=== PATIENT | female | born 1945 | race Caucasian/White ===

== ENCOUNTER 2019-09-19 07:02 | Day surgery (SDC) | payer MEDICARE, BC ==
[2019-09-15 12:52] LABS: BASOPHILS # (AUTO) 0.1 X10'3 (0-0.2); BASOPHILS % (AUTO) 1.1 % (0-1); EOSINOPHILS # (AUTO) 0.2 X10'3 (0-0.9); EOSINOPHILS % (AUTO) 2.2 % (0-6); HEMATOCRIT 41.8 % (35.0-45.0); LYMPHOCYTES # (AUTO) 1.6 X10'3 (1.1-4.8); LYMPHOCYTES % (AUTO) 19.5 % (21-51); MEAN CORPUSCULAR HEMOGLOBIN 29.6 PG (27.0-31.0); MEAN CORPUSCULAR HGB CONC 33.5 g/dL (33.0-36.5); MEAN CORPUSCULAR VOLUME 88.3 FL (78-98); MEAN PLATELET VOLUME 8.8 FL (7.4-10.4); MONOCYTES # (AUTO) 0.6 X10'3 (0-0.9); MONOCYTES % (AUTO) 6.9 % (2-12); NEUTROPHILS # (AUTO) 5.9 X10'3 (1.8-7.7); NEUTROPHILS % (AUTO) 70.3 % (42-75); PLATELET COUNT 297 X10'3 (140-440); RED BLOOD COUNT 4.73 X10'6 (4.20-5.60); RED CELL DISTRIBUTION WIDTH 15.1 % (11.5-14.5); WHITE BLOOD COUNT 8.4 X10'3 (4.5-11.0)
[2019-09-15 12:59] LABS: ANION GAP 8 (8-16); BLOOD UREA NITROGEN 22 MG/DL (7-18); BUN/CREATININE RATIO 26.5 (6.6-38.0); CALCIUM 9.9 MG/DL (8.5-10.1); CHLORIDE 105 MMOL/L (99-107); CREATININE 0.83 MG/DL (0.40-0.90); GLUCOSE 102 MG/DL (70-104); POTASSIUM 3.8 MMOL/L (3.5-5.1); SODIUM 143 MMOL/L (135-145); TOTAL CARBON DIOXIDE 29.8 MMOL/L (24-32); eGFR 67 ML/MIN
[2019-09-15 13:02] LABS: PARTIAL THROMBOPLASTIN TIME 31 SECONDS (22-32)
[2019-09-19] VITALS (10 sets, daily range): BP systolic 128–147; BP diastolic 65–89
[~2019-09-19] VITALS: Ht 167.6 cm; Wt 95.4 kg
[2019-09-19] MEDS ORDERED: normal saline 1,000 ML IV SCH (07:25)
[2019-09-19] MEDS ORDERED: diphenhydrAMINE 25mg capsule PO PRN (07:25)
[2019-09-19] MEDS ORDERED: LORazepam 0.5 MG tablet PO PRN (07:25)
[2019-09-19] MEDS ORDERED: METF500T20 PO (07:55)
[2019-09-19] MEDS ORDERED: DOCU100C40 PO (07:55)
[2019-09-19] MEDS ORDERED: MELA5CAP PO (07:55)
[2019-09-19] MEDS ORDERED: KRIL500C PO (07:55)
[2019-09-19] MEDS ORDERED: MULT-1085 PO (07:55)
[2019-09-19] MEDS ORDERED: ASPI81TA52 PO (07:55)
[2019-09-19] MEDS ORDERED: CHOL200026 PO (07:55)
[2019-09-19] MEDS ORDERED: CLON-529 PO (07:55)
[2019-09-19] MEDS ORDERED: OMEP20TA5 PO (07:55)
[2019-09-19] MEDS ORDERED: LOSA100T57 PO (07:55)
[2019-09-19] MEDS ORDERED: SIMV-42 PO (07:55)
[2019-09-19] MEDS ORDERED: OXYB5TAB16 PO (07:55)
[2019-09-19] MEDS ORDERED: CHOL500050 PO (07:55)
[2019-09-19] MEDS ORDERED: HYDR25TA4 PO (07:55)
[2019-09-19] MEDS ORDERED: LIDOcaine 1% (10mg/ml)w/preservative injection 20ml MDV ONE (08:50)
[2019-09-19] MEDS ORDERED: iohexol 350MG/ML 100ml bottle IV ONE (08:50)
[2019-09-19] MEDS ORDERED: midazolam 2 mg/2 ml injection ONE (09:04)
[2019-09-19] MEDS ORDERED: fentaNYL/PF 50MCG/1 ML 2ML syringe ONE (09:04)
[2019-09-19] MEDS ORDERED: OXAZEpam 15mg capsule PO PRN (09:50)
[2019-09-19] MEDS ORDERED: ondansetron/PF 4mg/2ml inj IV PRN (09:50)
[2019-09-19] MEDS ORDERED: HYDROcodone/acetaminophen 5mg/325mg tablet PO PRN (09:50)
[2019-09-19] MEDS ORDERED: HYDROcodone/acetaminophen 10/325mg tab PO PRN (09:50)
[2019-09-19] MEDS ORDERED: proCHLORperazine 10 MG/2 ml inj IV PRN (09:50)
[2019-09-19] MEDS ORDERED: acetaminophen 325mg tablet PO PRN (09:50)
== END 2019-09-19 12:56 | disposition home or self-care (01) ==
LOC: SSTAY O 07:02
PROVIDERS: ATTEND Internal Medicine Interventional Cardiology
DX: R07.9 Chest pain, unspecified (principal); I25.10 Atherosclerotic heart disease of native coronary artery without angina pectoris; I10 Essential (primary) hypertension; E78.49 Other hyperlipidemia; K21.9 Gastro-esophageal reflux disease without esophagitis; G47.10 Hypersomnia, unspecified; Z98.890 Other specified postprocedural states; Z79.899 Other long term (current) drug therapy; Z88.2 Allergy status to sulfonamides; Z88.8 Allergy status to other drugs, medicaments and biological substances; E66.9 Obesity, unspecified; Z68.33 Body mass index [BMI] 33.0-33.9, adult
CPT/HCPCS: 36415; 80048; 85025; 85610; 85730; 93458; 99152; C1769; J1644; J2001; J2250; J3010; J7030; Q0163; Q9967; A4620; A6258

== ENCOUNTER → 2020-05-21 | Outpatient (CLI) | payer MEDICARE, BC ==
[~2020-05-21] MED LIST: ASPI81TA52 PO; CHOL200026 PO; CHOL500050 PO; CLON-529 PO; DOCU100C40 PO; HYDR25TA4 PO; KRIL500C PO; LOSA100T57 PO; MELA5CAP PO; METF-900 PO; MULT-1085 PO; OMEP20TA5 PO; OXYB5TAB16 PO; SIMV-42 PO
== END | disposition home or self-care (01) ==
LOC: RAD 08:38
PROVIDERS: ATTEND Family Medicine
DX: R56.9 Unspecified convulsions (principal)
CPT/HCPCS: 95819

== ENCOUNTER 2020-06-10 02:29 | Inpatient (IN) | payer MEDICARE, BC ==
[2020-06-10] VITALS (8 sets, daily range): BP systolic 115–168; BP diastolic 51–112
[~2020-06-10] VITALS: Ht 167.6 cm; Wt 100.0 kg
[2020-06-10] MEDS ORDERED: aspirin 81mg tab.chew PO ONE (02:35)
[2020-06-10] MEDS ORDERED: nitroGLYCERIN 0.4mg SUBLingual tab SL PRN ×3 (02:35→10:20)
--- NOTE | 2020-06-10 02:46 | NUR ---
dr. gonzales at bedside assessing patient
[2020-06-10] MEDS ORDERED: OMEP40CA13 PO (02:58)
[2020-06-10 03:00] LABS: BASOPHILS # (AUTO) 0.1 X10'3 (0-0.2); BASOPHILS % (AUTO) 0.9 % (0-1); EOSINOPHILS # (AUTO) 0.6 X10'3 (0-0.9); EOSINOPHILS % (AUTO) 6.6 % (0-6); HEMATOCRIT 42.6 % (35.0-45.0); HEMOGLOBIN 14.7 g/dl (12.0-16.0); LYMPHOCYTES # (AUTO) 2.2 X10'3 (1.1-4.8); LYMPHOCYTES % (AUTO) 23.5 % (21-51); MEAN CORPUSCULAR HEMOGLOBIN 30.7 PG (27.0-31.0); MEAN CORPUSCULAR HGB CONC 34.4 g/dL (33.0-36.5); MEAN CORPUSCULAR VOLUME 89.3 FL (78-98); MEAN PLATELET VOLUME 8.8 FL (7.4-10.4); MONOCYTES # (AUTO) 0.6 X10'3 (0-0.9); MONOCYTES % (AUTO) 6.7 % (2-12); NEUTROPHILS # (AUTO) 5.8 X10'3 (1.8-7.7); NEUTROPHILS % (AUTO) 62.3 % (42-75); PLATELET COUNT 304 X10'3 (140-440); RED BLOOD COUNT 4.77 X10'6 (4.20-5.60); RED CELL DISTRIBUTION WIDTH 14.3 % (11.5-14.5); WHITE BLOOD COUNT 9.3 X10'3 (4.5-11.0)
[2020-06-10 03:14] LABS: PARTIAL THROMBOPLASTIN TIME 30 SECONDS (22-32)
[2020-06-10 03:18] LABS: ALANINE AMINOTRANSFERASE 39 U/L (12-78); ALBUMIN 4.2 G/DL (3.4-5.0); ALKALINE PHOSPHATASE 106 IU/L (46-116); ANION GAP 9 (8-16); ASPARTATE AMINO TRANSFERASE 19 U/L (10-37); BILIRUBIN,TOTAL 0.3 MG/DL (0.1-1.0); BLOOD UREA NITROGEN 22 MG/DL (7-18); BUN/CREATININE RATIO 20.8 (6.6-38.0); CALCIUM 10.5 MG/DL (8.5-10.1); CHLORIDE 100 MMOL/L (99-107); CREATININE 1.06 MG/DL (0.40-0.90); GLUCOSE 187 MG/DL (70-104); POTASSIUM 3.9 MMOL/L (3.5-5.1); SODIUM 137 MMOL/L (135-145); TOTAL PROTEIN 8.4 G/DL (6.4-8.2); eGFR 51 ML/MIN
[2020-06-10] MEDS ORDERED: magnesium Cl slow-release 64mg tablet PO PRN (03:55)
[2020-06-10] MEDS ORDERED: magnesium hydroxide 30ml (MOM) UD suspension PO PRN (03:55)
[2020-06-10] MEDS ORDERED: magnesium 4gm in 100ml NS 100 ML IV PRN (03:55)
[2020-06-10] MEDS ORDERED: acetaminophen 325mg tablet PO PRN ×2 (03:55)
[2020-06-10] MEDS ORDERED: mag hydrox/Alum hydrox/simeth 30ml oral suspension PO PRN (03:55)
[2020-06-10] MEDS ORDERED: ondansetron/PF 4mg/2ml inj IV PRN (03:55)
[2020-06-10] MEDS ORDERED: potassium Cl 20 mEq SR tablet PO PRN ×2 (03:55)
[2020-06-10] MEDS ORDERED: HYDROcodone/acetaminophen 5mg/325mg tablet PO PRN (03:55)
[2020-06-10] MEDS ORDERED: potassium CL 10mEq/100ml bag 100 ML IV PRN ×2 (03:55)
[2020-06-10] MEDS ORDERED: morphine 2 MG/ML inj. syringe IV PRN ×2 (03:55)
[2020-06-10] MEDS ORDERED: normal saline 1000ml 1,000 ML IV SCH (03:55)
[2020-06-10] MEDS ORDERED: metoclopramide 5 mg/ml inj IV PRN (03:55)
[2020-06-10] MEDS ORDERED: bisacodyl 10mg suppository rectal RC PRN (03:55)
[2020-06-10] MEDS ORDERED: magnesium 2GM in 50ml NS 50 ML IV PRN (03:55)
[2020-06-10] MEDS ORDERED: HYDROcodone/acetaminophen 10/325mg tab PO PRN (03:55)
[2020-06-10 04:50] LABS: HEMOGLOBIN A1C 6.9 % (4.5-6.2)
[2020-06-10] MEDS: furosemide 40mg/4ml inj IV SCH ×3 (05:49→20:09)
[2020-06-10] MEDS: pantoprazole 40mg Tablet.DR PO SCH (07:30)
[2020-06-10] MEDS: docusate sod 100mg capsule PO SCH (08:00)
[2020-06-10] MEDS ORDERED: HYDROchlorothiazide 25mg tablet PO SCH (08:00)
[2020-06-10] MEDS: aspirin 81mg tablet.DR PO SCH (08:00)
[2020-06-10] MEDS: enoxaparin 40mg/0.4ml syringe SUBCUT SCH (08:00)
[2020-06-10] MEDS: cloNIDine 0.1 mg tablet PO SCH ×2 (08:00→20:09)
[2020-06-10] MEDS: K and/or MAG REPLACEMENT MC SCH ×2 (08:00→20:00)
[2020-06-10] MEDS: oxybutynin 5mg tablet PO SCH ×2 (08:00→20:09)
[2020-06-10] MEDS ORDERED: metoprolol tartrate 1mg/ml inj IV PRN (10:20)
[2020-06-10] MEDS ORDERED: aminophylline 250mg/10ml inj. IV PRN (10:20)
[2020-06-10] MEDS ORDERED: regadenoson 0.4mg/5ml syringe IV ONE (10:20)
[2020-06-10] MEDS: losartan 50mg tablet PO SCH (11:29)
--- NOTE | 2020-06-10 18:30 | NUR ---
Patient in room MED 311. I have received report from Delia SMALL and had the opportunity to ask questions and assume patient care.
[2020-06-10] MEDS ORDERED: enoxaparin 40mg/0.4ml syringe SQ SCH (20:00)
[2020-06-10] MEDS ORDERED: temazepam 15mg capsule PO PRN (21:00)
[2020-06-10] MEDS ORDERED: Melatonin 3mg tablet PO SCH (21:00)
[2020-06-11 02:00] VITALS: BP 161/73
[2020-06-11 06:00] VITALS: BP 144/56
--- NOTE | 2020-06-11 06:15 | NUR ---
Patient in room MED 311. I have received report from GEOVANNY sheldon and had the opportunity to ask questions and assume patient care.
[2020-06-11 06:26] LABS: HEMATOCRIT 41.1 % (35.0-45.0); HEMOGLOBIN 14.1 g/dl (12.0-16.0); MEAN CORPUSCULAR HEMOGLOBIN 30.8 PG (27.0-31.0); MEAN CORPUSCULAR HGB CONC 34.3 g/dL (33.0-36.5); MEAN CORPUSCULAR VOLUME 89.9 FL (78-98); MEAN PLATELET VOLUME 8.6 FL (7.4-10.4); PLATELET COUNT 254 X10'3 (140-440); RED BLOOD COUNT 4.57 X10'6 (4.20-5.60); RED CELL DISTRIBUTION WIDTH 14.3 % (11.5-14.5); WHITE BLOOD COUNT 10.5 X10'3 (4.5-11.0)
--- NOTE | 2020-06-11 06:38 | NUR ---
Problems reprioritized. Patient report given, questions answered & plan of care reviewed with Chastity SMALL.
[2020-06-11 06:40] LABS: ALBUMIN 3.4 G/DL (3.4-5.0); ANION GAP 10 (8-16); BLOOD UREA NITROGEN 19 MG/DL (7-18); BUN/CREATININE RATIO 20.9 (6.6-38.0); CALCIUM 9.6 MG/DL (8.5-10.1); CHLORIDE 101 MMOL/L (99-107); CHOLESTEROL 161 MG/DL (0-200); CREATININE 0.91 MG/DL (0.40-0.90); GLUCOSE 185 MG/DL (70-104); HDL CHOLESTEROL 40 MG/DL (35-60); LDL CHOLESTEROL 91 MG/DL (50-100); POTASSIUM 3.5 MMOL/L (3.5-5.1); SODIUM 139 MMOL/L (135-145); TOTAL CARBON DIOXIDE 28.1 MMOL/L (24-32); TRIGLYCERIDES 129 MG/DL (20-135); eGFR 60 ML/MIN
[2020-06-11] MEDS: furosemide 40mg/4ml inj IV SCH (08:00)
[2020-06-11] MEDS: K and/or MAG REPLACEMENT MC SCH (08:00)
[2020-06-11] MEDS: enoxaparin 40mg/0.4ml syringe SUBCUT SCH (08:00)
[2020-06-11 10:00] VITALS: BP 167/87
[2020-06-11] MEDS: cloNIDine 0.1 mg tablet PO SCH (10:46)
[2020-06-11] MEDS: losartan 50mg tablet PO SCH (10:46)
[2020-06-11] MEDS: docusate sod 100mg capsule PO SCH (10:47)
[2020-06-11] MEDS: aspirin 81mg tablet.DR PO SCH (10:47)
[2020-06-11] MEDS: pantoprazole 40mg Tablet.DR PO SCH (10:48)
[2020-06-11] MEDS: oxybutynin 5mg tablet PO SCH (10:48)
[2020-06-11] MEDS ORDERED: NITR0.4T51 SL (13:31)
[2020-06-11 14:00] VITALS: BP 149/90
--- NOTE | 2020-06-11 16:00 | NUR ---
Patient stable for discharge per MD orders. All discharge instructions and education reviewed with patient and all questions answered. New prescription e transmitted to preferred pharmacy. PIV discontinued dressing clean, dry and intact, tip intact. tele monitor removed. all known belongings collected and sent with patient. Patient wheeled to pmv driven by family.
== END 2020-06-11 16:00 | disposition home or self-care (01) | DRG 305 ==
LOC: ER 02:29 → ED HOLD 03:54 → MED 3N 17:35
PROVIDERS: ADMIT Family Medicine; ATTEND Family Medicine
PROC: 4A02XM4 Measurement of Cardiac Total Activity, External Approach (ICD-10-PCS; principal; 2020-06-10)
PROC: 3E073KZ Introduction of Other Diagnostic Substance into Coronary Artery, Percutaneous Approach (ICD-10-PCS; 2020-06-10)
DX: I16.0 Hypertensive urgency (principal); I25.10 Atherosclerotic heart disease of native coronary artery without angina pectoris; N18.9 Chronic kidney disease, unspecified; E11.22 Type 2 diabetes mellitus with diabetic chronic kidney disease; E78.5 Hyperlipidemia, unspecified; I12.9 Hypertensive chronic kidney disease with stage 1 through stage 4 chronic kidney disease, or unspecified chronic kidney disease; K21.9 Gastro-esophageal reflux disease without esophagitis; R09.89 Other specified symptoms and signs involving the circulatory and respiratory systems; Z88.1 Allergy status to other antibiotic agents; Z95.5 Presence of coronary angioplasty implant and graft; Z90.710 Acquired absence of both cervix and uterus
CPT/HCPCS: 36415; 71045; 78452; 80048; 80053; 80061; 82948; 83036; 83735; 83880; 84484; 85025; 85027; 85610; 85730; 93005; 93017; 93306; 93308; 93880; 99285; A9500; G0378; J1650; J1940; J2785

== ENCOUNTER 2020-09-29 13:41 | Emergency (ER) | payer MEDICARE, BC ==
[~2020-09-29] VITALS: Ht 167.6 cm; Wt 92.3 kg
[~2020-09-29 13:41] MED LIST changes: +NITR0.4T51 SL; -OMEP20TA5 PO; +OMEP40CA13 PO
[2020-09-29] MEDS ORDERED: ondansetron 4mg rapidly disintigrating tab PO ONE (14:40)
[2020-09-29] MEDS ORDERED: LIDOcaine 2% 10ml TOPICAL JELLY (Urojet) TP ONE (14:40)
[2020-09-29] MEDS ORDERED: HYDROcodone/acetaminophen 10/325mg tab PO ONE (14:40)
--- NOTE | 2020-09-29 15:35 | NUR ---
Spoke to EDMD regarding Meyer Catheter order for pt. Strait catheter to fully drain bladder will be performed instead.
[2020-09-29] MEDS ORDERED: HYDR-3964 PO (15:44)
[2020-09-29] MEDS ORDERED: ONDA4TAB6 PO (15:44)
[2020-09-29 16:34] VITALS: BP 150/74
== END 2020-09-29 16:35 | disposition home or self-care (01) ==
LOC: ER 13:41
DX: S32.10XA Unspecified fracture of sacrum, initial encounter for closed fracture (principal); S06.0X0A Concussion without loss of consciousness, initial encounter; M54.5 Low back pain; I10 Essential (primary) hypertension; Z98.890 Other specified postprocedural states; Z88.2 Allergy status to sulfonamides; Z79.82 Long term (current) use of aspirin; Z79.899 Other long term (current) drug therapy; W18.39XA Other fall on same level, initial encounter; Y93.89 Activity, other specified; Y92.89 Other specified places as the place of occurrence of the external cause; Y99.8 Other external cause status
CPT/HCPCS: 70450; 72131; 72192; 99285